=== PATIENT | female | born 1985 ===

== ENCOUNTER → 2017-07-20 | Outpatient (CLI) | payer OTHER ==
[~2017-07-20] MED LIST: ACYC400 PO; Amoxicillin875 MG PO; BENADRYL25 MG PO; Diflucan200 MG; LIDO2TG30 TOP; LORA1 PO; METPRE4DP PO; METR500 PO; NITR100CA PO; OXYACE5T PO; PROM25 PO
== END | disposition home or self-care (01) ==
LOC: LAB EV 18:30 → LAB SHORT 18:30
DX: R30.0 Dysuria (principal)
CPT/HCPCS: 87077; 87086; 87186

== ENCOUNTER → 2017-10-02 | Outpatient (CLI) | payer OTHER | END | disposition home or self-care (01) | LOC: LAB SHORT 13:15 → LAB EV 13:15 | DX: N39.0 Urinary tract infection, site not specified (principal) | CPT/HCPCS: 87077; 87086; 87186 ==

== ENCOUNTER 2020-08-04 09:32 | Emergency (ER) | payer OTHER ==
[~2020-08-04] VITALS: Ht 152.4 cm; Wt 45.4 kg
== END 2020-08-04 11:16 | disposition home or self-care (01) ==
LOC: ER 09:32
DX: S06.0X9A Concussion with loss of consciousness of unspecified duration, initial encounter (principal); F17.210 Nicotine dependence, cigarettes, uncomplicated; Z88.2 Allergy status to sulfonamides; W22.8XXA Striking against or struck by other objects, initial encounter
CPT/HCPCS: 99283; A9270

== ENCOUNTER → 2020-11-17 | Outpatient (CLI) | payer OTHER ==
[2020-11-18 10:38] LABS: Candida species (DNA Probe) Negative (NEGATIVE); G. vaginalis (DNA Probe) Positive (NEGATIVE); T. vaginalis (DNA Probe) Negative (NEGATIVE)
== END | disposition home or self-care (01) ==
LOC: LAB SHORT 15:40 → LAB 15:40
PROVIDERS: Nurse Practitioner Family
DX: Z20.2 Contact with and (suspected) exposure to infections with a predominantly sexual mode of transmission (principal)
CPT/HCPCS: 87480; 87510; 87660

== ENCOUNTER → 2020-11-23 | Outpatient (CLI) | payer OTHER ==
[2020-11-25 06:10] LABS: CHLAMYDIA TRACHOMATIS, NAA Negative (Negative)
== END | disposition home or self-care (01) ==
LOC: LAB 15:29 → LAB SHORT 15:29
PROVIDERS: Nurse Practitioner Family
DX: Z20.2 Contact with and (suspected) exposure to infections with a predominantly sexual mode of transmission (principal)
CPT/HCPCS: 87491; 87591